=== PATIENT | female | born 1955 | race Two or more races ===

== ENCOUNTER 2021-03-13 10:37 | Day surgery (SDC) | payer OTHER ==
[~2021-03-13 10:37] MED LIST: METFORMIN HCL500 M1 PO; OSTERA TABLET1 EACH PO; PRAVASTATIN SOD20 MG PO; TYLENOL 8 HOUR650 MG PO; ZESTRIL5 MG PO
== END 2021-03-13 19:10 | disposition home or self-care (01) ==
LOC: CIR.AMB 10:37
PROVIDERS: ATTEND Obstetrics & Gynecology
DX: N84.0 Polyp of corpus uteri (principal); N72 Inflammatory disease of cervix uteri; Z20.822 Contact with and (suspected) exposure to COVID-19

== ENCOUNTER 2021-12-26 10:00 | Inpatient (IN) | payer OTHER ==
[~2021-12-26] VITALS: Ht 180.3 cm; Wt 151.0 kg
[2022-01-01] MEDS ORDERED: GLIPIZIDE ER10 MG (07:58)
[2022-01-01] MEDS ORDERED: HYDROCHLOROTH12.5 MG (07:58)
[2022-01-01] MEDS ORDERED: FLONASE16 GM (07:59)
[2022-01-01] MEDS ORDERED: JANUMET XR 50-1 EACH (07:59)
== END 2022-01-02 11:51 | disposition home or self-care (01) | DRG 743 ==
LOC: O/R 01-01 05:29 → OB/GYN 01-01 05:29 → SURH 01-01 07:00 → OB/GYN 01-01 10:32
PROVIDERS: ADMIT Obstetrics & Gynecology Gynecologic Oncology; ATTEND Obstetrics & Gynecology Gynecologic Oncology
PROC: 0UT74ZZ Resection of Bilateral Fallopian Tubes, Percutaneous Endoscopic Approach (ICD-10-PCS; 2022-01-01)
PROC: 0UT24ZZ Resection of Bilateral Ovaries, Percutaneous Endoscopic Approach (ICD-10-PCS; 2022-01-01)
PROC: 07BC4ZZ Excision of Pelvis Lymphatic, Percutaneous Endoscopic Approach (ICD-10-PCS; 2022-01-01)
PROC: 0UT94ZZ Resection of Uterus, Percutaneous Endoscopic Approach (ICD-10-PCS; principal; 2022-01-01 07:00)
DX: N85.01 Benign endometrial hyperplasia (principal); N83.291 Other ovarian cyst, right side; N83.292 Other ovarian cyst, left side; Z20.822 Contact with and (suspected) exposure to COVID-19

== ENCOUNTER 2023-11-26 17:37 | Emergency (ER) | payer OTHER ==
[~2023-11-26] VITALS: Ht 180.3 cm; Wt 147.4 kg
[~2023-11-26 17:37] MED LIST changes: +FLONASE16 GM; +GLIPIZIDE ER10 MG; +HYDROCHLOROTH12.5 MG; +JANUMET XR 50-1 EACH
[2023-11-26] MEDS ORDERED: PRAVASTATIN SOD20 MG (18:01)
[2023-11-26] MEDS ORDERED: NASAL MIST126 ML (18:01)
[2023-11-26] MEDS ORDERED: FARXIGA10 MG (18:01)
[2023-11-26] MEDS ORDERED: OZEMPIC0.25 MG/02 (18:02)
[2023-11-26] MEDS ORDERED: ACETAMINOPHEN 500 MG GEL..CAP PO ONE (18:30)
[2023-11-26] MEDS ORDERED: ORPHENADRINE CITRATE 30 MG/ML AMPUL IM ONE (18:30)
[2023-11-26 19:59] LABS: URINE APPEARANCE Clear; URINE BILIRRUBIN Negative (NEGATIVE); URINE BLOOD Negative; URINE COLOR Dark Yellow; URINE LEUKOCYTE Small; URINE NITRATE Negative; URINE PROTEIN Negative (NEGATIVE)
[2023-11-26 20:02] LABS: URINE EPITHELIAL CELLS 34.9 uL (0.0-38.8); URINE WBC 153.1 uL (0.0-23.2)
[2023-11-26 20:57] LABS: URINE GLUCOSE 500 MG/DL (NEGATIVE)
[2023-11-26 20:59] LABS: URINE MUCUS SCANT
== END 2023-11-26 21:41 ==
LOC: ER 17:38
PROVIDERS: Nurse Practitioner Family
DX: N39.0 Urinary tract infection, site not specified (principal); I10 Essential (primary) hypertension; E11.9 Type 2 diabetes mellitus without complications; Z79.84 Long term (current) use of oral hypoglycemic drugs; Z88.6 Allergy status to analgesic agent
CPT/HCPCS: 36415; 72100; 96372; 99283; J2360